=== PATIENT | male | born 1950 | race Caucasian/White ===

== ENCOUNTER 2018-01-28 17:00 | Inpatient (IN) | payer OTHER ==
[~2018-01-28] VITALS: Ht 167.6 cm; Wt 88.0 kg
--- NOTE | ~2018-01-28 | EEG ---
[facility] [place] [address] ELECTROENCEPHALOGRAM Name: EVELYN ANDINO Room #: 350-P [facility] IN M.R.#: [id number] Admission: 01/28/18 Attend Phys: Alejandro Gunter MD Discharge: 01/30/18 Date of : 52 Report #: [id number] THIS REPORT FOR: //name// CC: Alejandro Casanovasaint joseph bereathanh DATE OF SERVICE: 01/29/2018 This patient is being evaluated for an episode of syncope. EEG was done by placing the electrodes by standard 10/20 system of electrode placement. Both referential and sequential montages were used for recording. Background activity in this patient's EEG is about 11 Hz and 40 microvolt. This patient went to sleep that was associated with bilaterally symmetrical sleep spindle and vertex sharp waves. Photic stimulation is unremarkable. Throughout the record, no active epileptiform activity was noticed. IMPRESSION: This patient's EEG is within normal limit. Thank you very much for this referral. <ELECTRONICALLY SIGNED> By: Sudarshan Mccall MD 02/02/18 1552 1122 1211 Sudarshan Mccall MD /nt
--- NOTE | ~2018-01-28 | 2DMMODE ---
[facility] [address] [place] [address] 2 D/M-MODE ECHOCARDIOGRAM Name: EVELYN ANDINO Room #: 350-P ADM IN M.R.#: [id number] Admission: 01/28/18 Attend Phys: Armando Zaidi MD Discharge: Date of : 52 Date of Service: 01/29/18 1111 Report #: [id number] THIS REPORT FOR: //name// APPROVED REPORT Study performed: 01/29/2018 10:28:53 EXAM: Comprehensive 2D, Doppler, and color-flow Echocardiogram Patient Location: Echo lab Room #: 350 Status: routine BSA: 1.97 HR: 76 bpm BP: 130/70 mmHg Rhythm: NSR Other Information Study Quality: Adequate Indications Synopce. Hx: CVA 2D Dimensions RVDd: 37.01 mm LVEF(%): 71.79 (>50%) IVSd: 10.53 (7-11mm) LVOT Diam: 24.07 (18-24mm) LVDd: 44.41 mm PWd: 9.91 (7-11mm) Ascending Ao: 32.34 (22-36mm) LVDs: 26.28 (25-40mm) Aortic Root: 39.72 mm Nash's LVEF: 71.79 % Volumes Left Atrial Volume (Systole) Single Plane 4CH: 36.94 mL Single Plane 2CH: 49.83 mL LA ESV Index: 24.00 mL/m2 Aortic Valve AoV Peak Sarbjit.: 1.28 m/s AO Peak Gr.: 6.56 mmHg LVOT Max P.60 mmHg LVOT Max V: 1.07 m/s RUI Vmax: 3.81 cm2 Mitral Valve E/A Ratio: 0.8 MV Decel. Time: 227.01 ms [facility] [address] [place] [address] 2 D/M-MODE ECHOCARDIOGRAM Name: SINAEVELYN BRANDY Room #: 350-[facility] IN M.R.#: [id number] Admission: 01/28/18 Attend Phys: Armando Zaidi MD Discharge: Date of : 52 Date of Service: 01/29/18 1111 Report #: [id number] MV E Max Sarbjit.: 0.73 m/s MV A Sarbjit.: 0.90 m/s MV PHT: 65.83 ms IVRT: 93.43 ms Pulmonary Valve PV Peak Sarbjit.: 0.82 m/s PV Peak Gr.: 2.70 mmHg Pulmonary Vein P Vein S: 0.74 m/s P Vein D: 0.33 m/s P Vein S/D Ratio: 2.24 Tricuspid Valve TR Peak Sarbjit.: 2.14 m/s RAP Estimate: 5.00 mmHg TR Peak Gr.: 18.32 mmHg PA Pressure: 23.00 mmHg Left Ventricle The left ventricle is normal size. There is normal LV segmental wall motion. Borderline concentric left ventricular hypertrophy. Left ventricular systolic function is normal. LVEF is 60-65%. Mild diastolic dysfunction is present (impaired relaxation pattern). Right Ventricle The right ventricle is normal size. The right ventricular systolic function is normal. Atria The left atrium size is normal. The right atrium size is normal. Aortic Valve Aortic valve leaflets are mildly thickened. Trace to mild aortic regurgitation. There is no aortic valvular stenosis. Mitral Valve The mitral valve is normal in structure. There is no mitral valve regurgitation noted. No evidence of mitral valve stenosis. Tricuspid Valve The tricuspid valve is normal in structure. Trace tricuspid regurgitation. Estimated PAP is 20-25mmHg. Pulmonic Valve [place] [id number] 2 D/M-MODE ECHOCARDIOGRAM Name: EVELYN ANDINO Room #: 350-P [facility] IN M.R.#: [id number] Admission: 01/28/18 Attend Phys: Armando Zaidi MD Discharge: Date of : 52 Date of Service: 01/29/18 1111 Report #: [id number] The pulmonary valve is normal in structure. Trace pulmonic regurgitation. Great Vessels Aortic root is mildly dilated. The ascending aorta is normal in size. IVC is normal in size and collapses >50% with inspiration. Pericardium There is no pericardial effusion. <Conclusion> The left ventricle is normal size. LVEF is 60-65%. Aortic valve leaflets are mildly thickened. Trace to mild aortic regurgitation. The mitral valve is normal in structure. There is no mitral valve regurgitation noted. The tricuspid valve is normal in structure. Trace tricuspid regurgitation. Estimated PAP is 20-25mmHg. The pulmonary valve is normal in structure. Trace pulmonic regurgitation. Aortic root is mildly dilated. The ascending aorta is normal in size. There is no pericardial effusion. <ELECTRONICALLY SIGNED> By: Radhames Ahmadi MD 01/29/18 1111 1111 1111 Radhames Ahmadi MD /INF
--- NOTE | ~2018-01-28 | EKG ---
[address] [address] ELECTROCARDIOGRAM REPORT Name: EVELYN ANDINO Room #: 350-P ADM IN M.R.#: [id number] Admission: 01/28/18 Attend Phys: Armando Zaidi MD Discharge: Date of : 52 Report #: [id number] THIS REPORT FOR: //name// [facility] ED Test Date: 2018-01-28 Test Time: 17:08:32 Pat Name: EVELYN ANDINO Department: Room: 350 Gender: M Life Manager: EVAN : 1950 Requested By: Blake Sr Order Number: [id number] MD: Chirag Chilel Measurements Intervals [place] Rate: 83 P: 52 UT: 170 QRS: 41 QRSD: 82 T: 33 QT: 349 QTc: 410 Interpretive Statements Sinus rhythm No significant abnormality Compared to ECG 03/06/2011 08:53:10 Sinus bradycardia no longer present Electronically Signed On 01-29-2018 7:50:11 SHADE MATCHER by Chirag Chilel [email or web address] <ELECTRONICALLY SIGNED> By: Chirag Chilel MD, [facility] 01/29/18 0750 07 07 Chirag Chilel MD, [facility] /EPI
--- NOTE | ~2018-01-28 | HC ---
[facility] [address] [place] [address] CONSULTATION Name: EVELYN ANDINO Room #: 350-P [facility] IN M.R.#: [id number] Admission: 01/28/18 Attend Phys: Alejandro Gunter MD Discharge: 01/30/18 Date of : 52 Report #: [id number] THIS REPORT FOR: //name// CC: Armando Scott DATE OF SERVICE: 01/29/2018 HISTORY OF PRESENT ILLNESS: This is a 67-year-old male patient who was evaluated by me to determine any neurological etiology for the patient's passing out spell. The patient was on a ladder and he felt dizzy and he passed out. There was no tonic-clonic activity noticed. The episode lasted just a very short period of time. There was no well-defined postictal period. He does not remember what happened during this episode now. I asked him if he hit his head or not. He said he does not remember that. The patient was apparently able to drive after this happened. 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 He was still able to work with cervical dystonia. He was receiving Botox shots, but he stopped doing that because he said it was painful. He denies any prior history of passing out. He denies being under stress. I carried out 14-point review of systems and he denies any new eye, ENT, respiratory, GI, , musculoskeletal, constitutional, dermatological, hematological, psychiatric, throat, allergic, endocrine symptom associated with present symptomatology. He is not having any chest pain, but is being evaluated by cardiology. PAST MEDICAL HISTORY: Negative for this kind of spell. FAMILY HISTORY: Negative for congenital epilepsies. SOCIAL HISTORY: He denies the use of tobacco. PHYSICAL EXAMINATION: The patient's examinations indicate that this patient is alert, responsive, able to follow simple command. His speech, concentration, fund of knowledge and memory is at his baseline. Cranial nerve examination 2-12 is unremarkable. His strength, sensation, reflexes and tones are symmetrical. He does not have any cerebellar sign. He does have cervical dystonia. I could not look at the fundus. His pulses are palpable. He has no edema, cyanosis or jaundice. He is a well-developed individual who does not have any dysmorphic features of eyes, ears and face. His hearing and vision looks adequate. He has no thyroid mass. Cardiac examinations clinically looks unremarkable. No respiratory difficulty or rhonchi on either side. His blood pressure is . LABORATORY DATA: His white count is 11.7. He did have a CT scan of the head, which was reviewed and that was unremarkable. He indicates there is no [facility] [address] [place] [address] CONSULTATION Name: EVELYN ANDINO Room #: 350-P [facility] IN M.R.#: [id number] Admission: 01/28/18 Attend Phys: Alejandro Gunter MD Discharge: 01/30/18 Date of : 52 Report #: [id number] contraindication for doing MRI. He had an EEG. IMPRESSION: It is unlikely that there is any neurological etiology for the patient's passing out spell. However, no apparent etiology is there and because of that, I will suggest excluding any neurological etiology. I will get an MRI done tomorrow to make sure there is no etiology there. We will look at the patient's EEG. If this workup is negative, that will make it even less likely that the patient's symptoms are because of neurological etiology and the management, evaluation and any restriction the patient need to be on need to be decided by cardiology and other strategic consultant. RECOMMENDATIONS: 1. MRI of the brain. 2. MRA. 3. EEG. 4. Neurological etiology appear unlikely clinically and if the above workup is also negative, the main management is going to be continuation of the patient's workup and management of systemic conditions, especially cardiology. Thank you very much for this referral and if you have any question, please feel free to contact me. <ELECTRONICALLY SIGNED> By: Sudarshan Mccall MD 02/02/18 1549 1737 195 Sudarshan Mccall MD /nt
[~2018-01-28 17:00] MED LIST: ACETAMINOPHEN325 M1 PO; BOTOX100 UNIT IM; CEFTIN 250 MG250 MG PO; CIPROFLOXACIN500 M1 PO; CLARINEX5 MG PO; FLEXERIL PO; MOBIC15 MG PO; NIACIN500 MG PO; NORCO 5-325 TA1 EACH PO; PEPCID40 MG PO; PREVACID 30MG C30 M1 PO; PREVACID30 M1 PO; PREVACID30 MG PO; QVAR8.7 G1 IH; ZYRTEC10 MG PO
[2018-01-28 17:15] VITALS: BP 172/94
[2018-01-28 17:41] LABS: BASOPHILS 0.5 % (0.0-2.0); EOSINOPHILS 0.7 % (0.0-3.0); HEMATOCRIT 47.4 % (42.0-52.0); HEMOGLOBIN 16.3 gm/dL (14.0-18.0); LYMPHOCYTES 7.6 % (24.0-44.0); MCH 30.2 pg (26.0-34.0); MCHC 34.3 g/dL (28.0-37.0); MONOCYTES 5.4 % (1.0-8.0); PLATELET COUNT 206 thou/uL (150-400); POLYS 85.8 % (36.0-66.0); RBC 5.38 mil/uL (4.50-6.00); RDW 12.3 % (10.5-14.5); WBC 11.7 thou/uL (4.0-11.0)
[2018-01-28 17:50] LABS: ANION GAP 5 mmol/L (7-16); BUN 10 mg/dL (7-18); CALCIUM 9.3 mg/dL (8.5-10.1); CHLORIDE 104 mmol/L (98-107); CO2 30 mmol/L (21-32); CREATININE 1.1 mg/dL (0.7-1.3); GLUCOSE 122 mg/dL (74-106); SODIUM 139 mmol/L (136-145)
[2018-01-28 18:20] LABS: TROPONIN-I < 0.04 ng/mL (<0.06)
[2018-01-28 21:00] VITALS: BP 147/91
[2018-01-28 21:30] VITALS: BP 151/90
[2018-01-28 21:35] VITALS: BP 150/81
[2018-01-28 21:36] VITALS: BP 159/79
[2018-01-29 00:58] VITALS: BP 112/62
[2018-01-29 04:00] VITALS: BP 124/67; BP 133/99
[2018-01-29 04:19] LABS: APTT 41.5 Seconds (24.5-32.8); PROTIME 10.7 Seconds (9.3-11.4)
[2018-01-29 04:35] LABS: ALBUMIN 3.2 g/dL (3.4-5.0); ANION GAP 8 mmol/L (7-16); BUN 12 mg/dL (7-18); CALCIUM 8.2 mg/dL (8.5-10.1); CHLORIDE 106 mmol/L (98-107); CHOLESTEROL 141 mg/dL (<200); CO2 26 mmol/L (21-32); CREATININE 0.9 mg/dL (0.7-1.3); GLUCOSE 98 mg/dL (74-106); HDL CHOLESTEROL 50 mg/dL (>40); LDL CHOLESTEROL 75 mg/dL (<100); POTASSIUM 3.9 mmol/L (3.5-5.1); SGOT 15 U/L (15-37); SGPT 35 U/L (30-65); SODIUM 140 mmol/L (136-145); TC:HDL 2.8 Ratio (Not establshd); TOTAL BILIRUBIN 1.3 mg/dL (<0.1-1.0); TRIGLYCERIDE 82 mg/dL (<150); TROPONIN-I < 0.04 ng/mL (<0.06); VLDL 16 mg/dL (<40)
[2018-01-29 04:37] LABS: SERUM ASSESSMENT Clear
[2018-01-29 08:07] VITALS: BP 130/70
[2018-01-29 19:40] VITALS: BP 135/75
[2018-01-30 03:50] VITALS: BP 129/73
[2018-01-30 07:09] VITALS: BP 135/75
[2018-01-30 11:05] VITALS: BP 132/78
[2018-01-30 15:28] VITALS: BP 147/85
[2018-01-30 16:45] VITALS: BP 147/85
[2018-01-30 17:41] VITALS: BP 147/85
== END 2018-01-30 18:22 | disposition home or self-care (01) | DRG 312 ==
LOC: ER 17:00 → EROBS 20:35 → 3W 20:35 → ENTRNSPT 01-30 17:45 → 3W 01-30 18:22
PROVIDERS: Nurse Practitioner; Nurse Practitioner Family
PROC: B24BZZ4 Ultrasonography of Heart with Aorta, Transesophageal (ICD-10-PCS; principal; 2018-01-29)
PROC: 4A00X4Z Measurement of Central Nervous Electrical Activity, External Approach (ICD-10-PCS; 2018-01-30)
DX: R55 Syncope and collapse (principal); D68.62 Lupus anticoagulant syndrome; M54.5 Low back pain; E78.5 Hyperlipidemia, unspecified; K21.9 Gastro-esophageal reflux disease without esophagitis; S00.81XA Abrasion of other part of head, initial encounter; M51.36 Other intervertebral disc degeneration, lumbar region; G24.9 Dystonia, unspecified; G89.29 Other chronic pain; W11.XXXA Fall on and from ladder, initial encounter; Z86.010 Personal history of colon polyps; Z90.49 Acquired absence of other specified parts of digestive tract; Z87.891 Personal history of nicotine dependence; Y93.89 Activity, other specified; Y92.89 Other specified places as the place of occurrence of the external cause; Y99.8 Other external cause status; Z28.21 Immunization not carried out because of patient refusal; Z82.49 Family history of ischemic heart disease and other diseases of the circulatory system; Z82.0 Family history of epilepsy and other diseases of the nervous system; Z80.42 Family history of malignant neoplasm of prostate; Z80.0 Family history of malignant neoplasm of digestive organs
CPT/HCPCS: 10779

== ENCOUNTER 2019-06-27 13:39 | Inpatient (IN) | payer OTHER ==
[~2019-06-27] VITALS: Ht 167.6 cm; Wt 85.7 kg
[2019-06-27 13:40] VITALS: BP 143/79; BP 172/86
[2019-06-27 14:05] LABS: EOSINOPHILS 2.3 % (0.0-3.0); HEMATOCRIT 44.4 % (42.0-52.0); HEMOGLOBIN 15.2 gm/dL (14.0-18.0); LYMPHOCYTES 21.5 % (24.0-44.0); MCH 30.3 pg (26.0-34.0); MCHC 34.2 g/dL (28.0-37.0); MCV 88.5 fL (80.0-100.0); MONOCYTES 6.6 % (1.0-8.0); PLATELET COUNT 200 thou/uL (150-400); POLYS 68.6 % (36.0-66.0); RBC 5.02 mil/uL (4.50-6.00); RDW 12.7 % (10.5-14.5); WBC 5.9 thou/uL (4.0-11.0)
[2019-06-27 14:11] LABS: CALCIUM 9.7 mg/dL (8.5-10.1); CREATININE 1.2 mg/dL (0.7-1.3); POTASSIUM 4.1 mmol/L (3.5-5.1)
[2019-06-27 14:19] LABS: DIRECT BILIRUBIN 0.2 mg/dL (<0.1-0.3); MAGNESIUM 2.1 mg/dL (1.8-2.4); TOTAL BILIRUBIN 0.9 mg/dL (<0.1-1.0); TOTAL PROTEIN 7.5 g/dL (6.4-8.2)
[2019-06-27 15:37] LABS: URINE BILIRUBIN NEGATIVE (Negative); URINE BLOOD NEGATIVE (Negative); URINE CLARITY CLEAR; URINE COLOR YELLOW; URINE GLUCOSE-RANDOM* NEGATIVE (Negative); URINE KETONES NEGATIVE (Negative); URINE LEUKOCYTES-REFLEX NEGATIVE (Negative); URINE NITRITE-REFLEX NEGATIVE (Negative); URINE PROTEIN (DIPSTICK) NEGATIVE (Negative); URINE UROBILINOGEN 0.2 E.U./dl (0.2-1.0)
[2019-06-27 15:45] LABS: AMP/METHAMP Negative (Negative); BARBITURATES Negative (Negative); BENZODIAZEPINES Negative (Negative); COCAINE Negative (Negative); METHADONE Negative (Negative); OPIATES Negative (Negative); PCP Negative (Negative)
[2019-06-27 16:28] VITALS: BP 155/82
[2019-06-27 18:23] VITALS: BP 155/80
[2019-06-27 18:43] VITALS: BP 164/89
[2019-06-27] MEDS ORDERED: PAXIL10 MG (19:21)
--- NOTE | 2019-06-27 19:44 | NUR ---
PATIENT ARRIVED ON 3W ROOM 351 AT 1845. VITALS AND ORIENTED PATIENT TO ROOM AND GAVE REPORT TO NIGHT RN.
[2019-06-28 03:39] VITALS: BP 140/79
[2019-06-28 05:08] LABS: HEMATOCRIT 42.5 % (42.0-52.0); HEMOGLOBIN 14.7 gm/dL (14.0-18.0); MCH 30.4 pg (26.0-34.0); MCHC 34.6 g/dL (28.0-37.0); MCV 87.8 fL (80.0-100.0); RBC 4.84 mil/uL (4.50-6.00); WBC 5.2 thou/uL (4.0-11.0)
[2019-06-28 05:16] LABS: CREATININE 1.1 mg/dL (0.7-1.3); POTASSIUM 3.6 mmol/L (3.5-5.1)
[2019-06-28 07:50] VITALS: BP 142/74
[2019-06-28 11:14] VITALS: BP 170/88
[2019-06-28 15:55] VITALS: BP 171/88
--- NOTE | 2019-06-28 18:26 | NUR ---
care of pt assumed this am @ ~0700. pt noted to be aox4 today, but states he does not remember anything from the date 06/27/19 from 10am till 6:30pm. Neuro checks begun every 4 hrs. pt up ad mine w/ a steady, balanced and coordinated gait. pt w/ a good appetite for food and fluid today. pt denies constipation and denies any urination issues. pt visited by his /Norma late morning and she states that she is seeing "much improvement" from his admission through er yesterday. pt had mri/mra today. dr. gutierrez called and informed results within computer for him to view, order for aspirin given. call placed x2 to dr. paul for her to view mri/mra results, no return call recieved from her. pt is very ready and hopeful for discharge tomorrow.
[2019-06-28 19:30] VITALS: BP 145/86
[2019-06-29 04:00] VITALS: BP 140/80
--- NOTE | 2019-06-29 04:02 | NUR ---
Patient making progress towards outcome goals. Vital signs and rhythm stable. Neuro stable. Up adlib in room without difficulty.
[2019-06-29 07:20] VITALS: BP 153/79
[2019-06-29 11:10] VITALS: BP 133/72
[2019-06-29 14:49] VITALS: BP 118/76
[2019-06-29 18:24] VITALS: BP 118/76
--- NOTE | 2019-06-29 18:47 | NUR ---
ASSUMED PATIENT CARE AT 0700. A/O X4. NO CONFUSE NOTED . DC TO HOME NOW.
== END 2019-06-29 18:30 | disposition home or self-care (01) | DRG 72 ==
LOC: ER 13:39 → EROBS 16:55 → 3W 18:42
PROVIDERS: Emergency Medicine; ADMIT Internal Medicine
DX: G45.4 Transient global amnesia (principal); Z90.49 Acquired absence of other specified parts of digestive tract; K21.9 Gastro-esophageal reflux disease without esophagitis; M54.9 Dorsalgia, unspecified; G89.29 Other chronic pain; F41.9 Anxiety disorder, unspecified; G24.3 Spasmodic torticollis; E78.5 Hyperlipidemia, unspecified; Z82.49 Family history of ischemic heart disease and other diseases of the circulatory system; Z80.42 Family history of malignant neoplasm of prostate; Z82.0 Family history of epilepsy and other diseases of the nervous system; Z80.0 Family history of malignant neoplasm of digestive organs
CPT/HCPCS: 10879

== ENCOUNTER → 2019-10-20 | Emergency (ER) | payer OTHER ==
[~2019-10-20] VITALS: Ht 167.6 cm; Wt 83.0 kg
[~2019-10-20] MED LIST changes: +FLOMAX0.4 MG PO; +FLONASE 0.05%50 MCG NARES; +ONDANSETRON ODT8 MG PO; +PAXIL10 MG; +REQUIP 0.25 M0.25 M1 PO; +TORADOL 10 MG T10 MG PO
[2019-10-20 13:20] LABS: URINE BILIRUBIN NEGATIVE (Negative); URINE BLOOD 3+ (Negative); URINE CLARITY SL CLOUDY; URINE COLOR YELLOW; URINE GLUCOSE-RANDOM* TRACE (Negative); URINE KETONES NEGATIVE (Negative); URINE LEUKOCYTES-REFLEX NEGATIVE (Negative); URINE NITRITE-REFLEX NEGATIVE (Negative); URINE PROTEIN (DIPSTICK) TRACE (Negative); URINE SPECIFIC GRAVITY >= 1.030 (1.005-1.035); URINE UROBILINOGEN 0.2 E.U./dl (0.2-1.0)
[2019-10-20 13:33] LABS: SQUAMOUS None Seen /LPF (0-3); URINE WBC-REFLEX 0-5 Rare /HPF (0-5)
[2019-10-20 13:34] LABS: BACTERIA-REFLEX >30 Many /HPF (None Seen); CASTS None Seen /LPF (None Seen); CRYSTALS None Seen /LPF (None Seen)
[2019-10-20 14:11] LABS: ABSOLUTE NEUTROPHILS 7.4 thou/uL (1.4-8.2); BASOPHILS 0.6 % (0.0-2.0); EOSINOPHILS 0.9 % (0.0-3.0); HEMATOCRIT 45.4 % (42.0-52.0); HEMOGLOBIN 15.3 gm/dL (14.0-18.0); LYMPHOCYTES 10.1 % (24.0-44.0); MCH 30.3 pg (26.0-34.0); MCHC 33.6 g/dL (28.0-37.0); MCV 90.1 fL (80.0-100.0); MONOCYTES 6.2 % (1.0-8.0); PLATELET COUNT 215 thou/uL (150-400); POLYS 82.2 % (36.0-66.0); RBC 5.04 mil/uL (4.50-6.00); RDW 12.8 % (10.5-14.5)
[2019-10-20 14:27] LABS: CALCIUM 9.3 mg/dL (8.5-10.1); CREATININE 1.3 mg/dL (0.7-1.3); POTASSIUM 4.1 mmol/L (3.5-5.1)
[2019-10-20 14:35] LABS: TOTAL BILIRUBIN 0.8 mg/dL (<0.1-1.0); TOTAL PROTEIN 7.3 g/dL (6.4-8.2)
[2019-10-20 14:48] VITALS: BP 155/98
== END ==
LOC: ER 12:17
PROVIDERS: Emergency Medicine
DX: N20.0 Calculus of kidney (principal); E78.5 Hyperlipidemia, unspecified; E66.9 Obesity, unspecified; K21.9 Gastro-esophageal reflux disease without esophagitis; M54.9 Dorsalgia, unspecified; G89.29 Other chronic pain; Z68.29 Body mass index [BMI] 29.0-29.9, adult; Z90.49 Acquired absence of other specified parts of digestive tract

== ENCOUNTER → 2020-08-06 | Outpatient (CLI) | payer OTHER | LOC: LAB 11:23 | PROVIDERS: ATTEND Student in an Organized Health Care Education/Training Program | DX: Z01.812 Encounter for preprocedural laboratory examination (principal); Z20.828 Contact with and (suspected) exposure to other viral communicable diseases ==

== ENCOUNTER → 2020-08-11 | Outpatient (CLI) | payer OTHER ==
[~2020-08-11] VITALS: Ht 167.6 cm; Wt 81.7 kg
--- NOTE | 2020-08-12 16:06 | PATH ---
[facility] [place] [address] PATHOLOGY RPT PROCEDURE Name: EVELYN ANDINO Room #: REG WILLIAM Walker.#: [id number] Admission: 08/11/20 Date of : 52 Discharge: Report #: [id number] Path Case #: [id number] [facility] Accession Number: [id number] . 01 Material submitted: . PART A: colon - POLYP AT ASCENDING COLON X2. Modifiers: ascending PART B: colon - POLYP AT TRANSVERSE COLON. Modifiers: transverse . 01 Clinical history: . HX OF POLYPS . 02 Diagnosis: A. Polyp x 2, at ascending colon, endoscopic biopsy: - One fragment showing tubular adenoma; negative for high grade dysplasia. - One fragment showing a hyperplastic polyp along with a lymphoid aggregate; negative for dysplasia. . B. Polyp, at transverse colon, endoscopic biopsy: - Tubular adenoma. - Negative for high grade dysplasia. (IUV/db; 08/12/2020) LBQ 08/12/2020 1319 Local . 02 Electronically signed: . Henny Davenport MD, Pathologist NPI- [id number] . 01 Gross description: . A. The specimen is received in formalin, labeled "Evelyn Andino", "polyp at ascending colon x2". Received are multiple segments of pale balderas soft tissue, ranging in size from 0.1 cm to 0.7 cm. The specimen is entirely submitted in cassette A1. . B. The specimen is received in formalin, labeled "Evelyn Andino", "polyp at transverse colon". Received are 2 segments of slightly polypoid, pale balderas-brown soft tissue measuring 0.2 and 0.5 cm. The specimen is entirely submitted in cassette B1.([facility]; 08/11/2020) MAR/MAHIN 08/11/2020 [employer] Local . 02 Pathologist provided ICD-10: D12.2, K63.5, D12.3 . 02 CPT . 063914, 577778 Specimen Comment: A courtesy copy of this report has been sent to [phone] Specimen Comment: [id number] [address] PATHOLOGY RPT PROCEDURE Name: EVELYN ANDINO Room #: REG WILLIAM Weller#: [id number] Admission: 08/11/20 Date of : 52 Discharge: Report #: [id number] Path Case #: [id number] Specimen Comment: Report sent to / DR HONG Performed at: [address] [facility], [place], [place] [id number] MD Zachary Calixto MD Phone: [phone] Performed at: [address] [id number] MD Henny Davenport MD Phone: [phone]
--- NOTE | 2020-08-13 08:11 | P ---
[facility] [place] [address] PROCEDURE REPORT Name: EVELYN ANDINO Room #: REG [facility] Nithin#: [id number] Admission: 08/11/20 Attend Phys: Adilson Leyva Discharge: Date of : 52 Report #: [id number] THIS REPORT FOR: cc: Bart Scott,Adilson Mendez MD ~ CC: Adilson Scott MD DATE OF SERVICE: 08/11/2020 PROCEDURE PERFORMED: Colonoscopy with polypectomies. HISTORY OF PRESENT ILLNESS: The patient is a 69-year-old male with a history of colon polyps 5 years ago, here for routine followup. Denies any symptoms. No family history of colon cancer. DESCRIPTION OF PROCEDURE: The risks and benefits of the procedure were explained to the patient, those risks including but not limited to bleeding, perforation and the risk of sedation. He understood these risks and gave informed consent. Sedation was given using propofol per anesthesia. Next, a digital rectal exam was initially performed, which was normal. Next, using a standard Olympus colonoscope, the scope was placed in the patient's anus and advanced under direct vision to the cecum. The overall prep was good. The cecum and ileocecal valve were normal in appearance. In the ascending colon, 2 polyps were noted. The smallest was 4 mm in size and removed with cold forceps, the larger was 8 mm and removed by snare cautery. In the transverse colon, another 8 mm polyp was removed by snare cautery. The descending and sigmoid colon were normal. The rectal mucosa was normal. On retroflexion, no abnormalities were noted. The scope was then withdrawn and the procedure terminated. The patient tolerated the procedure well. IMPRESSION: 1. Three colonic polyps. 2. Otherwise, normal colonoscopy. RECOMMENDATIONS: 1. Await biopsy results. 2. Repeat colonoscopy in 5 years. [facility] [address] [place] [address] PROCEDURE REPORT Name: EVELYN ANDINO Room #: REG [facility]#: [id number] Admission: 08/11/20 Attend Phys: Adilson Leyva Discharge: Date of : 52 Report #: [id number] Thank you for allowing me to participate in his care. <ELECTRONICALLY SIGNED> By: Adilson Shankar MD 08/13/20 0811 1051 1228 Adilson Shankar MD /nt
== END | disposition home or self-care (01) ==
LOC: GI 09:37
PROVIDERS: ATTEND Specialist
DX: Z12.11 Encounter for screening for malignant neoplasm of colon (principal); Z86.010 Personal history of colon polyps; D12.2 Benign neoplasm of ascending colon; D12.3 Benign neoplasm of transverse colon; E78.5 Hyperlipidemia, unspecified; G47.30 Sleep apnea, unspecified; K21.9 Gastro-esophageal reflux disease without esophagitis; Z98.890 Other specified postprocedural states; Z87.442 Personal history of urinary calculi; Z90.49 Acquired absence of other specified parts of digestive tract; Z87.891 Personal history of nicotine dependence; Z79.899 Other long term (current) drug therapy
CPT/HCPCS: 62110; 62900